=== PATIENT | male | born 1990 | race Caucasian/White ===

== ENCOUNTER 2023-04-20 14:26 | Emergency (ER) | payer BC ==
[~2023-04-20] VITALS: Ht 180.3 cm; Wt 83.9 kg
[2023-04-20] MEDS ORDERED: PROPRANOLOL HCL 10 MG TABLET ONE (15:21)
[2023-04-20] MEDS ORDERED: PROPRANOLOL HCL 10 MG TABLET PO SCH (15:30)
[2023-04-20 17:30] VITALS: BP 141/99; TEMP 98.5; O2SAT 99
== END 2023-04-20 17:30 | disposition home or self-care (01) ==
LOC: ER 14:54
DX: R07.89 Other chest pain (principal); F41.9 Anxiety disorder, unspecified; F41.0 Panic disorder [episodic paroxysmal anxiety]; F32.A Depression, unspecified; Z88.0 Allergy status to penicillin; Z88.8 Allergy status to other drugs, medicaments and biological substances
CPT/HCPCS: 71045-TC